=== PATIENT | male | born 1970 | race Two or more races ===

== ENCOUNTER 2020-10-19 14:30 | Outpatient (REF) | payer OTHER, MEDICAID, SELFPAY | END 2020-10-19 14:31 | disposition home or self-care (01) | LOC: HO.LAB 14:30 | PROVIDERS: PCP Internal Medicine; Visit Provider Internal Medicine | DX: Z20.828 Contact with and (suspected) exposure to other viral communicable diseases (principal) | CPT/HCPCS: C9803; U0003 ==

== ENCOUNTER → 2021-03-27 14:34 | Outpatient (BNVA) | payer OTHER, SELFPAY | PROVIDERS: PCP Internal Medicine; Visit Provider Physician Assistant Medical | DX: Z77.21 Contact with and (suspected) exposure to potentially hazardous body fluids (principal) | CPT/HCPCS: 36415; 84450; 84460; 86706; 86803; 99203 ==

== ENCOUNTER → 2021-05-06 13:05 | Outpatient (BNVA) | payer OTHER, SELFPAY | PROVIDERS: PCP Internal Medicine | DX: Z77.21 Contact with and (suspected) exposure to potentially hazardous body fluids (principal) | CPT/HCPCS: 36415; 84450; 84460; 87389; 90746; 99211 ==

== ENCOUNTER → 2021-06-04 13:15 | Outpatient (BNVA) | payer OTHER, SELFPAY | PROVIDERS: PCP Internal Medicine | DX: Z23 Encounter for immunization (principal) | CPT/HCPCS: 90746 ==

== ENCOUNTER → 2021-06-28 13:18 | Outpatient (BNVA) | payer OTHER, SELFPAY | PROVIDERS: PCP Internal Medicine | DX: Z77.21 Contact with and (suspected) exposure to potentially hazardous body fluids (principal) | CPT/HCPCS: 36415; 84450; 84460; 86803; 87389; 99211 ==

== ENCOUNTER 2021-11-04 13:15 | Outpatient (REF) | payer OTHER, SELFPAY ==
[2021-11-04 15:45] LABS: Alanine Aminotransferase 46 U/L (0-40); Aspartate Amino Transferase 30 U/L (5-37)
[2021-11-05 07:58] LABS: HIV AB/AG Nonreactive (Nonreactive); HIV Num 1 0.05 S/CO (0.00-0.99); ~Hepatitis C Antibody Nonreactive (Nonreactive)
== END 2021-11-04 13:16 | disposition home or self-care (01) ==
LOC: WCCF 13:15
PROVIDERS: Visit Provider Internal Medicine
DX: Z77.21 Contact with and (suspected) exposure to potentially hazardous body fluids (principal)
CPT/HCPCS: 36415; 84450; 84460; 86803; 87389; 99211